=== PATIENT | female | born 1995 | race Two or more races ===

== ENCOUNTER → 2018-08-30 | Outpatient (REF) | payer OTHER | LOC: M SFHCLERA 10:11 | PROVIDERS: ATTEND Nurse Practitioner Family | DX: J02.9 Acute pharyngitis, unspecified (principal) ==

== ENCOUNTER → 2018-12-12 | Outpatient (CLI) | payer OTHER ==
--- NOTE | 2018-12-12 14:37 | REP ---
Clinical: Trauma. Technique: AP, lateral, bilateral oblique views right hand . Findings: The osseous structures and joint spaces are intact and normal. There is no evidence for acute fracture or dislocation. Surrounding soft tissues are unremarkable. No subcutaneous emphysema or radiodense foreign body. Impression: Normal right hand series . No acute fracture or dislocation. Electronically Signed by Shai Almanzar MD 12/12/2018 02:29 P
== END ==
LOC: M LRY 14:13
PROVIDERS: ATTEND Nurse Practitioner Family
DX: S69.91XA Unspecified injury of right wrist, hand and finger(s), initial encounter (principal); W18.30XA Fall on same level, unspecified, initial encounter; Y92.009 Unspecified place in unspecified non-institutional (private) residence as the place of occurrence of the external cause

== ENCOUNTER → 2019-05-11 | Outpatient (CLI) | payer OTHER ==
--- NOTE | 2019-05-11 14:49 | REP ---
Clinical: Chest pain . Comparison: None . Technique: PA and lateral. Findings: The mediastinum and cardiac silhouette are normal. The lung maldonado are clear and without acute consolidation, effusion, or pneumothorax. The skeletal structures are intact and normal. Impression: 1. No acute cardiopulmonary process. Electronically Signed by Shai Almanzar MD 05/11/2019 02:41 P
== END ==
LOC: M LRY 14:26
PROVIDERS: ATTEND Physician Assistant Medical
DX: R07.9 Chest pain, unspecified (principal)
CPT/HCPCS: 71046; 93005; G0463

== ENCOUNTER 2023-11-27 06:50 | Emergency (ER) | payer OTHER ==
[~2023-11-27] VITALS: Ht 160 cm; Wt 76.0 kg
[2023-11-27] MEDS ORDERED: CETI10CA13 PO (07:06)
[2023-11-27 11:44] LABS: BASO # 0.1 10^3/uL (0.0-0.2); BASO % 0.5 % (0.0-1.0); EOS # 0.1 10^3/uL (0.0-0.5); EOS % 0.7 % (0.0-3.0); HEMOGLOBIN 13.6 g/dl (12.0-15.5); LYMPH # 2.1 10^3/uL (1.5-5.0); LYMPH % 19.7 % (24.0-44.0); MEAN CORPUSCULAR HEMOGLOBIN 28.5 pg (27.0-33.0); MEAN CORPUSCULAR HGB CONC 33.2 g/dl (32.0-36.5); MONO # 0.7 10^3/uL (0.0-0.8); MONO % 6.1 % (2.0-8.0); NEUTROPHILS # 7.7 10^3/uL (1.5-8.5); NEUTROPHILS % 72.6 % (36.0-66.0); PLATELET COUNT, AUTOMATED 355 10^3/uL (150-450); RED BLOOD COUNT 4.77 10^6/uL (4.00-5.40); WHITE BLOOD COUNT 10.6 10^3/uL (4.0-10.0)
[2023-11-27 12:12] LABS: LIPASE 38 U/L (12-53)
[2023-11-27 12:14] LABS: HCG, SERUM QUALITATIVE NEGATIVE (NEGATIVE)
[2023-11-27 12:15] LABS: ALBUMIN 4.3 G/DL (3.2-5.2); ALKALINE PHOSPHATASE 84 U/L (46-116); ALT/SGPT 34 U/L (7.0-40); AST/SGOT 15 U/L (<34); BILIRUBIN,DIRECT 0.1 MG/DL (<0.4); BILIRUBIN,TOTAL 0.5 MG/DL (0.3-1.2); TOTAL PROTEIN 7.2 G/DL (5.7-8.2)
[2023-11-27] MEDS ORDERED: IBUP-1022 PO (13:38)
[2023-11-27 13:49] VITALS: BP 118/75; TEMP 98.1; O2SAT 98
== END 2023-11-27 13:55 | disposition home or self-care (01) ==
LOC: M ED 06:50
DX: N20.0 Calculus of kidney (principal); Z79.1 Long term (current) use of non-steroidal anti-inflammatories (NSAID); Z79.899 Other long term (current) drug therapy

== ENCOUNTER → 2024-09-20 | Outpatient (CLI) | payer OTHER ==
[~2024-09-20] MED LIST: CETI10CA13 PO; IBUP-1022 PO
== END ==
LOC: M RAD 07:33
PROVIDERS: ATTEND Obstetrics & Gynecology
DX: O24.410 Gestational diabetes mellitus in pregnancy, diet controlled (principal); Z3A.35 35 weeks gestation of pregnancy

== ENCOUNTER → 2024-09-25 | Outpatient (REF) | payer OTHER | LOC: M SFHCWAGY 17:05 | PROVIDERS: ATTEND Obstetrics & Gynecology | DX: Z34.93 Encounter for supervision of normal pregnancy, unspecified, third trimester (principal); Z3A.36 36 weeks gestation of pregnancy ==

== ENCOUNTER 2024-10-07 22:36 | Inpatient (IN) | payer OTHER ==
[~2024-10-07] VITALS: Ht 160 cm; Wt 80.4 kg
[~2024-10-07 22:36] MED LIST changes: -IBUP-1022 PO; +IBUP600T42 PO
[2024-10-07 23:08] VITALS: BP 118/76
[2024-10-07] MEDS ORDERED: PRENTAB9 PO (23:10)
[2024-10-07] MEDS ORDERED: TUMS500C PO (23:11)
[2024-10-07] MEDS ORDERED: OXYTOCIN INJ 10UNITS/ML 1ML VIAL IM PRN (23:15)
[2024-10-07] MEDS ORDERED: LIDOCAINE 1% MDV 20 ML VIAL INFIL PRN (23:15)
[2024-10-07] MEDS ORDERED: TRANEXAMIC ACID INJection 1,000 MG in NS 100 ML IV PRN (23:15)
[2024-10-07] MEDS ORDERED: CARBOPROST TROMETHAMINE 250 MCG/ML AMP IM PRN (23:15)
[2024-10-07] MEDS ORDERED: METHYLERGONOVINE MALEATE 0.2 MG/ML 1 ML VIAL IM PRN (23:15)
[2024-10-07] MEDS ORDERED: OXYTOCIN DRIP 30 UNITS in IV 1 EA IV PRN (23:15)
[2024-10-07] MEDS ORDERED: HOME MED LIST COMPLETE! XX SCH (23:15)
[2024-10-08] VITALS (34 sets, daily range): BP systolic 89–131; BP diastolic 50–68; O2SAT 96
[2024-10-08 00:14] LABS: PLATELET COUNT, AUTOMATED 326 10^3/uL (150-450)
[2024-10-08 00:53] LABS: HIV 1&2 SCREEN NEGATIVE (NEGATIVE)
[2024-10-08 01:01] LABS: HEPATITIS C VIRUS ABY INDEX < 0.02 INDEX (<0.8)
[2024-10-08] MEDS ORDERED: NALOXONE INJ 0.4 MG/1 ML VIAL IV PRN (02:00)
[2024-10-08] MEDS ORDERED: diphenhydrAMINE 50 MG/ML VIAL IV PRN (02:00)
[2024-10-08] MEDS ORDERED: ONDANSETRON 4MG 2ML VIAL IV PRN (02:00)
[2024-10-08] MEDS ORDERED: EPIDURAL/PCA KEYS XX PRN (02:00)
[2024-10-08] MEDS ORDERED: LR 500 ML IV PRN (02:00)
[2024-10-08] MEDS: LACTATED RINGER'S 1000 ML IV STA (02:14)
[2024-10-08] MEDS: LR 1,000 ML IV SCH (05:21)
[2024-10-08] MEDS: OXYTOCIN DRIP 30 UNITS in IV 1 EA IV SCH (05:21)
[2024-10-08] MEDS: FENTANYL/ROPIVACAINE/NACL BAG 100 ML EPIDURAL SCH (05:23)
[2024-10-08] MEDS ORDERED: OXYTOCIN DRIP 30 UNITS in IV 1 EA IV SCH (13:00)
[2024-10-08] MEDS ORDERED: MOM 30 ML SUSPENSION UDC PO PRN (13:00)
[2024-10-08] MEDS ORDERED: ANUSOL HC CREAM 30 GM TOP PRN (13:00)
[2024-10-08] MEDS ORDERED: METHYLERGONOVINE MALEATE 0.2 MG TAB PO PRN (13:00)
[2024-10-08] MEDS ORDERED: DOCUSATE SODIUM 100 MG CAPSULE PO PRN (13:00)
[2024-10-08] MEDS ORDERED: CALCIUM CARBONATE 500 MG CHEW U/D PO PRN (13:00)
[2024-10-08] MEDS ORDERED: ACETAMINOPHEN 325 MG TAB PO PRN (13:00)
[2024-10-08] MEDS: IBUPROFEN 800 MG TAB PO PRN (16:34)
[2024-10-08] MEDS: DIBUCAINE 1% OINTMENT 30 GM TOP PRN (20:00)
[2024-10-09 05:55] VITALS: BP 110/58; O2SAT 97
[2024-10-09] MEDS: PRENATAL VITAMINS CHEWABLE TABLET PO SCH (08:25)
[2024-10-09] MEDS: IBUPROFEN 600 MG TAB PO PRN (08:28)
[2024-10-09] MEDS: MEASLES,MUMPS,RUBELLA VACCINE INJ (MMR-II) SC.IMMUN ONE (17:06)
[2024-10-09] MEDS: RHOGAM 300MCG (1500IU) INJ IM SCH (17:06)
[2024-10-09 17:52] VITALS: BP 112/61; O2SAT 97
[2024-10-10] MEDS: ACETAMINOPHEN 500 MG TAB PO PRN (01:16)
[2024-10-10 05:46] VITALS: BP 107/64; O2SAT 99
== END 2024-10-10 19:10 | disposition home or self-care (01) | DRG 807 ==
LOC: M LDO 22:36 → M LDI 23:05 → M OBS 10-08 14:23
PROVIDERS: ADMIT Advanced Practice Midwife; ATTEND Obstetrics & Gynecology
PROC: 10E0XZZ Delivery of Products of Conception, External Approach (ICD-10-PCS; principal; 2024-10-08)
PROC: 0HQ9XZZ Repair Perineum Skin, External Approach (ICD-10-PCS; 2024-10-08)
DX: O24.420 Gestational diabetes mellitus in childbirth, diet controlled (principal); Z37.0 Single live birth; Z3A.38 38 weeks gestation of pregnancy; O70.0 First degree perineal laceration during delivery